=== PATIENT | male | born 1945 | race Caucasian/White ===

== ENCOUNTER 2023-03-19 10:49 | Outpatient (CLI) | payer OTHER, MEDICAID | END 2023-03-19 10:50 | disposition home or self-care (01) | LOC: ULT 10:49 | PROVIDERS: ATTEND Family Medicine | DX: M79.89 Other specified soft tissue disorders (principal) | CPT/HCPCS: 93922 ==

== ENCOUNTER 2023-05-14 13:20 | Outpatient (CLI) | payer MEDICARE, MEDICAID ==
[2023-05-14 15:18] LABS: #Basophils 0.1 10x3/uL (0.0-0.2); #Eosinphils 0.5 10x3/uL (0.0-0.5); #Monocytes 0.7 10x3/uL (0.0-1.1); %Basophils 0.8 % (0.0-2.0); %Eosinophils 6.4 % (0.0-6.0); %Lymphocytes 36.8 % (18.0-47.0); %Monocytes 8.1 % (0.0-10.0); %Neutrophils 47.7 % (40.0-75.0); Hematocrit 40.1 % (38.8-50.0); Mean Corpuscular HGB CONC 32.4 g/dL (32.0-36.0); Mean Corpuscular Hemoglobin 30.8 pg (27.0-33.0); Mean Platelet Volume 10.1 fl (7.4-10.4); Platelet Count 228 10x3/uL (150-450); Red Blood Cell (RBC) Count 4.22 10x6/uL (4.32-5.72); White Blood Cell (WBC) Count 8.5 10x3/uL (3.5-10.5)
[2023-05-14 15:52] LABS: ALT (SGPT) 16 U/L (8-55); AST (SGOT) 24 U/L (5-34); Alkaline Phosphatase 96 U/L (40-110); Anion Gap 11 mmol/L (10-20); BUN (Urea Nitrogen) 21 mg/dL (8.4-25.7); Bilirubin, Total 0.5 mg/dL (0.2-1.2); Calc. Creatinine Clearance 0 mL/min (70-130); Calcium 9.1 mg/dL (7.8-10.44); Carbon Dioxide 27 mmol/L (23-31); Chloride 108 mmol/L (98-107); Estimated GFR 50; Globulin 2.7 g/dL (2.4-3.5); Glucose 117 mg/dL (83-110); Protein, Total 6.7 g/dL (5.8-8.1); Sodium 141 mmol/L (136-145)
== END 2023-05-14 13:21 | disposition home or self-care (01) ==
LOC: LABBT 13:20
PROVIDERS: ATTEND Internal Medicine Cardiovascular Disease
DX: Z01.818 Encounter for other preprocedural examination (principal)
CPT/HCPCS: 80053; 85025; 93005; 93010

== ENCOUNTER 2023-08-18 12:59 | Outpatient (CLI) | payer MEDICARE, MEDICAID ==
[~2023-08-18 12:59] MED LIST: Iopamidol 370 76% 100 ML VIAL ONE
== END 2023-08-18 13:00 | disposition home or self-care (01) ==
LOC: BICMAMMO 12:59
PROVIDERS: ATTEND Family Medicine
DX: Z13.820 Encounter for screening for osteoporosis (principal); M81.0 Age-related osteoporosis without current pathological fracture; M85.851 Other specified disorders of bone density and structure, right thigh
CPT/HCPCS: 77080; Q9967; 93461; 99152; 99153

== ENCOUNTER 2023-11-20 11:10 | Outpatient (CLI) | payer OTHER, MEDICAID ==
[2023-11-20 12:19] LABS: #Basophils 0.03 10x3/uL (0.0-0.2); %Basophils 0.5 % (0.0-1.0); %Eosinophils 5.1 % (0.0-10.0); %Lymphocytes 30.7 % (21.0-51.0); %Monocytes 7.3 % (0.0-10.0); %Neutrophils 56.1 % (42.0-75.0); Hematocrit 41.6 % (42.0-52.0); Hemoglobin 13.5 g/dL (14.0-18.0); Mean Corpuscular HGB CONC 32.5 g/dL (32.0-36.0); Mean Corpuscular Hemoglobin 29.7 pg (27.0-31.0); Mean Corpuscular Volume 91.6 fL (78.0-98.0); Mean Platelet Volume 10.3 fL (7.4-10.4); Platelet Count 153 10x3/uL (130-400); RBC Distribution Width 15.2 % (11.5-14.5); Red Blood Cell (RBC) Count 4.54 mill/uL (4.70-6.10)
[2023-11-20 12:49] LABS: INR-International Normal Ratio 1.1; Prothrombin Time 14.1 sec (12.0-14.7)
[2023-11-20 12:50] LABS: PTT 33.1 sec (22.9-36.1)
[2023-11-20 12:51] LABS: Anion Gap 11 mmol/L (10-20); BUN (Urea Nitrogen) 21 mg/dL (8.4-25.7); Calc. Creatinine Clearance 0 mL/min (70-130); Calcium 9.2 mg/dL (7.8-10.44); Carbon Dioxide 27 mmol/L (23-31); Chloride 107 mmol/L (98-107); Estimated GFR 54; Glucose 113 mg/dL (83-110); Potassium 4.2 mmol/L (3.5-5.1); Sodium 141 mmol/L (136-145)
[2023-11-20 13:18] LABS: Bilirubin Negative (Negative); Blood, Urine Negative (Negative); Clarity Turbid (Clear); Glucose, Urine (Dipstick) Greater than 1000 mg/dL (Negative); Ketone, Urine Negative (Negative); Leukocyte 500 Leu/uL (Negative); Nitrite Negative (Negative); Protein, Urine (Dipstick) Negative (Neg-Trace); RBC/HPF 0-3 HPF (0-3); Specific Gravity, Urine 1.023 (1.002-1.036); Urobilinogen Normal mg/dL (Less than 2); pH, Urine 5.5 (5.0-9.0)
[2023-11-20 13:27] LABS: Bacteria/HPF 2+ HPF (None Seen)
== END 2023-11-20 11:11 ==
LOC: LABBT 11:10
PROVIDERS: ATTEND Urology
DX: Z01.818 Encounter for other preprocedural examination (principal); N47.1 Phimosis
CPT/HCPCS: 80048; 81001; 85025; 85610; 85730; 87077; 87086; 93005; 93010

== ENCOUNTER 2023-11-27 06:17 | Day surgery (SDC) | payer OTHER, MEDICAID ==
[2023-11-20 11:36] VITALS: BMI 34.0
[2023-11-27] MEDS ORDERED: Bupivacaine 0.25% HCL 30 ML VIAL ONE (06:23)
[2023-11-27] MEDS ORDERED: Bacitracin Zinc Ointment 30 gm TUBE ONE (06:24)
[2023-11-27] MEDS ORDERED: Dexamethasone 4 mg/ml Vial ONE (06:49)
[2023-11-27] MEDS ORDERED: PROPOFOL 20 ML ONE (06:49)
[2023-11-27] MEDS ORDERED: fentaNYL PF 100 MCG/2 ML SYRINGE ONE (06:49)
[2023-11-27] MEDS ORDERED: Ondansetron PF 4 MG/2 ML Vial ONE (06:49)
[2023-11-27] MEDS ORDERED: Lidocaine 1% PF 5 ML VIAL ONE (06:49)
[2023-11-27] MEDS ORDERED: CEFAZOLIN 2 GM VIAL ONE (07:12)
[2023-11-27] MEDS ORDERED: Sodium Chloride 0.9% 100 ML ONE (07:12)
[2023-11-27] MEDS ORDERED: Etomidate 40 MG (20 mL) VIAL ONE (07:27)
[2023-11-27] MEDS ORDERED: ePHEDrine Sulfate 50 MG/10 ML VIAL ONE (07:53)
[2023-11-27] MEDS ORDERED: Glycopyrrolate 0.2 MG/ML 5 ML SYRINGE ONE (08:02)
== END 2023-11-27 10:48 | disposition home or self-care (01) ==
LOC: SDC 06:17
PROVIDERS: ATTEND Urology
PROC: 0VTTXZZ Resection of Prepuce, External Approach (ICD-10-PCS; principal; 2023-11-27)
DX: N47.1 Phimosis (principal); I10 Essential (primary) hypertension; E11.9 Type 2 diabetes mellitus without complications
CPT/HCPCS: 54161; J0665; J1100; J2405; J2704; 88304